=== PATIENT | male | born 1965 | race Caucasian/White ===

== ENCOUNTER 2018-01-06 18:30 | Emergency (ER) | payer MEDICAID ==
[2018-01-06 18:30] VITALS: BMI 29.4
[2018-01-06 18:44] VITALS: PULSE 100; RESP 20; TEMP 98.5; O2SAT 98
[2018-01-06] MEDS ORDERED: Lidocaine 5% Patch TD STA (18:51)
[2018-01-06] MEDS ORDERED: Lidocaine 5% Patch TD ONE (19:03)
--- NOTE | 2018-01-06 19:37 | ED PDOC ---
HPI: Back Time Seen by Provider: 01/06/18 18:42 Chief Complaint (Nursing): Back Pain Chief Complaint (Provider): left lower back pain History Per: Patient History/Exam Limitations: no limitations Onset/Duration Of Symptoms: Other (2 months ) Current Symptoms Are (Timing): Still Present Quality Of Discomfort: "Pain" Additional Complaint(s): 52 year old male with a history of herniated disk presents to the ED complaining of left lower back pain onset 2 months radiating to entire left leg and shoulder. Reports pain is usually similar but is resolved after taking Percocet and methadose. States he sees Dr. Vaughan, pain management doctor monthly and is scheduled to see him on January 11 .Denies fever, weakness, trauma , abdominal pain, dysuria, or incontinence (stool or urine). PMD: Dr. Vaughan Past Medical History Reviewed: Historical Data, Nursing Documentation, Vital Signs Vital Signs: Last Vital Signs Temp 98.5 F 01/06/18 18:40 Pulse 100 H 01/06/18 18:40 Resp 20 01/06/18 18:40 BP Pulse Ox 98 01/06/18 18:40 - Medical History PMH: Hepatitis (a,b,c), HTN Denies: Diabetes, HIV, Seizures, Sexually Transmitted Disease Other PMH: herniated disk - Surgical History Surgical History: Cholecystectomy - Family History Family History: States: No Known Family Hx - Home Medications Home Medications: Ambulatory Orders Medication Instructions Recorded Methadone [Methadose] 40 mg PO DAILY 12/14/16 oxyCODONE/Acetaminophen [Percocet 1 tab PO Q4 PRN 12/14/16 5/325 mg Tab] FLUoxetine [Prozac] 20 mg PO DAILY #30 cap 12/18/16 traZODone [Desyrel] 50 mg PO HS PRN #30 tab 12/18/16 - Allergies Allergies/Adverse Reactions: Allergies Allergy/AdvReac Type Severity Reaction Status Date / Time FISH Allergy Severe RASH Verified 01/06/18 18:40 Review of Systems ROS Statement: Except As Marked, All Systems Reviewed And Found Negative Constitutional: Positive for: Other (trauma). Negative for: Fever, Weakness Genitourinary Male: Negative for: Dysuria, Incontinence (stool or urine) Musculoskeletal: Positive for: Back Pain (left lower) Physical Exam - Reviewed Nursing Documentation Reviewed: Yes Vital Signs Reviewed: Yes - Physical Exam Appears: Positive for: Non-toxic, No Acute Distress Head Exam: Positive for: ATRAUMATIC, NORMAL INSPECTION, NORMOCEPHALIC Skin: Positive for: Normal Color, Warm, Dry Eye Exam: Positive for: EOMI, Normal appearance, PERRL Cardiovascular/Chest: Positive for: Regular Rate, Rhythm. Negative for: Tachycardia Respiratory: Positive for: Normal Breath Sounds. Negative for: Decreased Breath Sounds, Accessory Muscle Use, Respiratory Distress Back: Positive for: Other (Left-sided para-lumbar spasm). Negative for: L CVA Tenderness, R CVA Tenderness, Vertebral Tenderness Extremity: Positive for: Normal ROM (straight leg; positive at left leg 30 degrees raise) Neurologic/Psych: Positive for: Alert, Oriented (x3), Motor/Sensory Deficits ( bilateral lower extremity 5/5 ) - ECG O2 Sat by Pulse Oximetry: 98 (RA) Pulse Ox Interpretation: Normal - Progress ED Course And Treament: On re-evaluation, pt. reports moderate analgesia. Gait steady unassisted. No distress. Advised to f/u with pain management on 01/11/2018 as previously scheduled. Medical Decision Making Medical Decision Making: Time: 1850 Initial Plan: --Lidoderm 1 ea TD --Toradol 30mg --Hip left [RAD] --Hip min 2v w/pelvis LT [RAD] --Reevaluation X-ray presents no fracture. Clinical Impression: sciatica Upon provider evaluation patient is medically stable, and requires no further treatment in the ED at this time. Patient will be discharged. Counseling was provided and all questions were answered regarding diagnosis and need for follow up with PMD. There is agreement to discharge plan. Return if symptoms persist or worsen. Scribe Attestation: Documented by Sundeep Fulton, acting as a scribe for Andrae Segundo PA-C Provider Scribe Attestation: All medical record entries made by the Scribe were at my direction and personally dictated by me. I have reviewed the chart and agree that the record accurately reflects my personal performance of the history, physical exam, medical decision making, and the department course for this patient. I have also personally directed, reviewed, and agree with the discharge instructions and disposition. Disposition - Clinical Impression Clinical Impression: Sciatica - Patient ED Disposition Is Patient to be Admitted: No - Disposition Referrals: Rory Zhu [Outside] Disposition: Routine/Home Disposition Time: 19:50 Condition: IMPROVED Instructions: Sciatica (DC) Forms: [facility] (Greenlandic)
--- NOTE | 2018-01-07 09:03 | RAD ---
PROCEDURE: Left Hip X-ray Radiographs. HISTORY: pain COMPARISON: CT scan of the abdomen and pelvis dated 11/30/2015. FINDINGS: BONES: No acute fracture. JOINTS: Unremarkable. SOFT TISSUES: Normal. OTHER FINDINGS: None. IMPRESSION: No demonstrated fracture or dislocation.
== END 2018-01-06 20:15 | disposition home or self-care (01) ==
LOC: H.ER 18:30
DX: M54.30 Sciatica, unspecified side (principal); I10 Essential (primary) hypertension
CPT/HCPCS: 73502; 96372; 99283; J1885